=== PATIENT | female | born 1950 | race Caucasian/White ===

== ENCOUNTER 2019-02-21 15:35 | Emergency (ER) | payer MEDICARE ==
--- NOTE | 2019-02-21 16:10 | RAD ---
EXAM: 3 views of the left shoulder HISTORY: Shoulder pain COMPARISON: None FINDINGS: There is no evidence of acute fracture or dislocation. Mild glenohumeral degenerative ansari es are present. No soft tissue swelling is seen. The visualized thorax is unremarkable. IMPRESSION: Degenerative changes without acute osseous abnormality.
[2019-02-21] MEDS ORDERED: HYDROcodone/Acetaminophen 5/325 mg Tablet ONE (18:45)
== END 2019-02-21 20:36 | disposition home or self-care (01) ==
LOC: ERS 15:35
DX: S43.402A Unspecified sprain of left shoulder joint, initial encounter (principal); I10 Essential (primary) hypertension; Z79.899 Other long term (current) drug therapy; W18.2XXA Fall in (into) shower or empty bathtub, initial encounter